=== PATIENT | male | born 1995 | race Caucasian/White ===

== ENCOUNTER 2020-09-21 03:26 | Emergency (ER) | payer BC ==
[~2020-09-21] VITALS: Ht 172.7 cm; Wt 74.4 kg
--- NOTE | 2020-09-21 03:35 | NUR ---
PT BIBRA C/O SOB. PT AAOX4 BREATING EVENLY AND UNLABORED, SATURATING 100% RA. PER PT HE WAS TRYING TO FALL ASLEEP WHEN HE SUDDENLY FELT HIS THROAT CLOSING UP. PT DENIES EATING ANYTHING OUT OF THE ORDINARY. MD AT BEDSIDE FOR EVAL. PT ATTACHED TO MONITOR AND POX. PT GIVEN BLANKET AND CALL LIGHT WITHIN REACH.
--- NOTE | 2020-09-21 03:49 | NUR ---
XRAY AT BEDSIDE
[2020-09-21] MEDS ORDERED: LORAZEPAM 1 MG TABLET ONE (03:51)
[2020-09-21] MEDS ORDERED: predniSONE 20 MG TABLET ONE (03:51)
[2020-09-21] MEDS: predniSONE 10 MG TABLET PO ONE (03:55)
[2020-09-21] MEDS: LORAZEPAM 1 MG TABLET PO ONE (03:58)
--- NOTE | 2020-09-21 04:41 | NUR ---
CALLED [facility] FOR IMAGES TO BE READ
--- NOTE | 2020-09-21 05:09 | NUR ---
CALLED [facility] TO F/U ON READING OF THE IMAGES
--- NOTE | 2020-09-21 05:45 | NUR ---
Patient discharged to home in stable condition. Written and verbal after care instructions given. Patient verbalizes understanding of instruction. Pt ambulatory with a steady gait
[2020-09-21 05:47] VITALS: BP 127/67
== END 2020-09-21 05:45 | disposition home or self-care (01) ==
LOC: ER 03:29
DX: R06.02 Shortness of breath (principal); R07.0 Pain in throat
CPT/HCPCS: 70360; 71045; 99284; J7512 ×2